=== PATIENT | female | born 2000 | race Caucasian/White ===

== ENCOUNTER 2024-11-15 09:43 | Emergency (ER) | payer OTHER, SELFPAY ==
[2024-11-15 09:54] VITALS: BP 115/74; PULSE 101; RESP 16; TEMP 36.9; O2SAT 98; BMI 34.2
--- NOTE | 2024-11-15 09:58 | EKG_ITS ---
[facility] Test Date: 2024-11-15 Pat Name: GREGORY FARLEY Department: Room: - Gender: Female Drill Setup Operator: : 2000 Requested By: Enio Luis Order Number: [id number] Reading MD: Enio Luis Measurements Intervals [place] Rate: 97 P: 68 NM: 141 QRS: 40 QRSD: 90 T: 20 QT: 322 QTc: 411 Interpretive Statements SINUS RHYTHM No previous ECG available for comparison /store/S0/[id number]/ecg/[id number].pdf
--- NOTE | 2024-11-15 10:02 | PD.EDRME ---
Rapid Medical Screening Exam [facility] Arrival date/time: 11/15/24 09:43 24-year-old female with no known medical history presents to the emergency room with a chief complaint of sternal chest pain that radiates down her left arm causing numbness x 3 days. Patient is currently 30 weeks . Patient denies any vaginal bleeding abdominal pain and states her baby is moving multiple times an hour. I have greeted and performed a focused initial assessment of this patient. A comprehensive ED assessment and evaluation of the patient, analysis of all test results, and completion of the medical decision making process will be conducted by additional ED providers. Chief Complaint: Chest Pain Vital signs: Vital Signs Temperature 98.5 F 11/15/24 09:54 Pulse Rate 101 H 11/15/24 09:54 Respiratory Rate 16 11/15/24 09:54 Blood Pressure 115/74 11/15/24 09:54 Pulse Oximetry (%) 98 11/15/24 09:54 Oxygen Delivery Method Room Air 11/15/24 09:54 Vital signs reviewed by provider: Yes
[2024-11-15 10:25] LABS: Basophils % (Auto) 0 % (0-2.5); Eosinophils # (Auto) 0.1 Thou/mm3 (0.0-0.5); Eosinophils % (Auto) 1 % (0-10); Hemoglobin 12.5 g/dL (12.0-16.0); Immature Granulocytes % (Auto) 2 % (0-0); Immature Granulocytes Auto 0.14 Thou/mm3 (0.00-0.00); Lymphocytes # (Auto) 2.2 Thou/mm3 (1.0-4.8); Lymphocytes % (Auto) 24 % (10-50); Mean Corpuscular HGB Conc 36.8 g/dl (31.0-37.0); Mean Corpuscular Hemoglobin 32.6 pg (25.0-35.0); Mean Corpuscular Volume 89 fL (80-100); Monocytes # (Auto) 0.8 Thou/mm3 (0.0-0.8); Monocytes % (Auto) 9 % (0-12); Neutrophils # (Auto) 5.8 Thou/mm3 (1.8-7.7); Neutrophils % (Auto) 64 % (37-80); Nucleated Red Blood Cell % 0 /100 WBC (0); Platelet Count 238 Thou/mm3 (140-440); RDW Standard Deviation 41.6 fL (36.4-46.3); Red Blood Count 3.84 Miln/mm3 (4.00-5.20)
[2024-11-15 10:42] LABS: B-Type Natriuretic Peptide < 20 pg/mL (0-100)
[2024-11-15 10:43] LABS: Alanine Aminotransferase 26 U/L (10-49); Albumin, Serum 4.1 gm/dL (3.5-5.0); Albumin/Globulin Ratio 1.6 (1.2-2.2); Alkaline Phosphatase 80 U/L (46-116); Anion Gap 9 (7-16); Aspartate Amino Transferase 19 U/L (0-34); BUN/Creatinine Ratio 8 Ratio (12-20); Bilirubin,Total 0.4 mg/dL (0.3-1.2); Blood Urea Nitrogen < 5 mg/dL (9-23); Calcium 9.8 mg/dL (8.3-10.6); Calcium (Corrected) 9.8 mg/dL (8.5-10.1); Carbon Dioxide 23.8 mMol/L (20.0-31.0); Chloride 103 mMol/L (98-107); Creatinine (Component) 0.6 mg/dL (0.6-1.3); Estimated Creatinine Clearance 128.2 mL/min (>60); Globulin 2.6 gm/dL (2.3-3.5); Glucose 80 mg/dL (74-106); Magnesium 1.8 mg/dL (1.6-2.6); Osmolality,Calculated 268 (275-295); Potassium 3.9 mMol/L (3.4-5.1); Sodium 136 mMol/L (136-145); Total Protein 6.7 gm/dL (5.7-8.2); Troponin I < 0.002 ng/mL (0.0-0.045); eGFR > 60 See Note
[2024-11-15 12:01] LABS: Collection Type, Urine Clean Catch
[2024-11-15 12:17] LABS: Bacteria,Urine Rare; Bilirubin,Urine Negative (Negative); Blood,Urine Negative (Negative); Clarity,Urine Clear (Clear/Hazy); Color,Urine Colorless (Lt Yel-Yel); Glucose, Urine Negative (Negative); Ketones,Urine Negative (Negative); Leukocyte Esterase,Urine Negative (Negative); Nitrite,Urine Negative (Negative); PH,Urine 7.5 (5.0-7.0); Protein,Urine Negative (Neg - Trace); RBC,Urine 1 /hpf (0-3); Specific Gravity,Urine 1.006 (1.001-1.035); Squamous Epithelial Cell,Urine 2 /hpf (0-5); Urobilinogen,Urine Negative mg/dL (0.0-1.0); WBC,Urine 1 /hpf (0-5)
--- NOTE | 2024-11-15 14:49 | PD.EDADULT ---
ED General RME/HPI General Chief complaint: Chest Pain Stated complaint: CHEST TIGHTNESS Time Seen by Provider: 11/15/24 14:05 Arrival date/time: 11/15/24 09:43 RME / HPI RME / HPI narrative: 11/15/24 09:43 24-year-old female with no known medical history presents to the emergency room with a chief complaint of sternal chest pain that radiates down her left arm causing numbness x 3 days. Patient is currently 30 weeks . Patient denies any vaginal bleeding abdominal pain and states her baby is moving multiple times an hour. I have greeted and performed a focused initial assessment of this patient. A comprehensive ED assessment and evaluation of the patient, analysis of all test results, and completion of the medical decision making process will be conducted by additional ED providers. DR. BAI MAIN ED EVALUATION: 24 year old female with no past medical history, who is 30 weeks , presents to the Emergency Department accompanied by her mother with complaint of chest tightness ongoing since Wednesday. Associated symptoms include left arm numbness. Today, she was at her OBGYN appointment and she told them about the chest pain and was sent over here for further evaluation. No shortness of breath. No other symptoms reported at this time. Review of Systems Review of Systems Systems Reviewed: All systems reviewed, normal except as documented Narrative Review of Systems: GEN: No fever, no chills, no weight loss EYES: No discharge, no visual changes, no pain HEENT: No ear pain, no congestion, no sore throat PULM: No shortness of breath, no cough, no congestion CV: + chest tightness, no dyspnea on exertion, no palpitations GI: No nausea, no vomiting, no diarrhea, no pain, no constipation : No frequency, no urgency and no dysuria MUSC/SKEL: No joint pain, no back pain SKIN: No rash PSYCH: No hallucinations, no depression HEME/LYMPH: No easy bleeding or bruising tendencies NEURO: + left arm numbness; no weakness, no headache Past Medical History Social History SMOKING STATUS: Never smoker SUBSTANCE USE: does not use ALCOHOL: Never Past Medical History Comments PMH COMMENT: Denies any PMHx, surgeries, daily medications, or known allergies. ED Exam Narrative Physical exam: GENERAL APPEARANCE: alert and oriented x 4, well-developed, well-nourished, no acute distress VITALS: All vitals were reviewed and the pulse ox is 98% on room air, which is normal according to my interpretation. HEENT: Normocephalic, atraumatic; pupils equal, round, reactive to light; EOMI; mucous membranes pink, moist; oropharynx clear NECK: Supple LUNGS: CTABL; no wheezes, no rales, no rhonchi HEART: borderline tachycardic at 101, regular rhythm; normal S1, S2; no murmurs ABDOMEN: non distended; normal BS; soft, no tenderness, no guarding, no rebound; no masses, no organomegaly, no hernia BACK: no CVA tenderness EXTREMITIES: atraumatic; no edema NEUROLOGIC: awake; alert and oriented x4; cranial nerves II-XII grossly intact; no focal sensory or motor deficits PSYCHIATRIC: appropriate mood and affect SKIN: warm, dry, normal color; no rashes Course Quality Measures none Orders Category Date Time Status EKG (ED ONLY) *Do not use* NOW Care 11/15/24 09:58 Completed EKG (ED Only) Stat Exams 11/15/24 09:58 Draft B-Type Natriuretic Peptide Stat Lab 11/15/24 10:16 Completed CBC Stat Lab 11/15/24 10:16 Completed Comprehensive Metabolic Panel Stat Lab 11/15/24 10:16 Completed Magnesium Stat Lab 11/15/24 10:16 Completed Troponin I Stat Lab 11/15/24 10:16 Completed Urinalysis Stat Lab 11/15/24 11:53 Completed Vital Signs Vital signs: Vital Signs Temperature 98.5 F 11/15/24 09:54 Pulse Rate 101 H 11/15/24 09:54 Respiratory Rate 16 11/15/24 09:54 Blood Pressure 115/74 11/15/24 09:54 Pulse Oximetry (%) 98 11/15/24 09:54 Oxygen Delivery Method Room Air 11/15/24 09:54 Discharge Plan Plan Patient Disposition: HOME (Self Care) Prescriptions/Referrals Referrals: Ramses Devries MD [Primary Care Provider] - In 1 week Problem List Clinical Impression: Chest tightness Patient/Caregiver Discharge Instructions Education Materials: ED Chest Pain, Noncardiac Print Language: Khmer Stand Alone Forms: Gwen Award Info., Patient Portal Info Letter MDM Narrative MDM hospital course: I, Michaelle Capone, am scribing for and in the presence of Dr. Bai. I discussed differentials with the patient. Recommended if the symptoms were persistent or worsened to come back for a VQ scan. Clinical Information Provided by patient and parent (mother) Medical Records Reviewed None (no previous visits) Meds/Rx Considered, not Ordered None Labs/Rad/Tests considered, not Ordered None Chronic Illness/Social Conditions Add or document further as needed: Denies any PMHx, surgeries, daily medications, or known allergies. 30 weeks . EKG Interpretation EKG #1: Date/time of EK11/15/24 1010 hours EKG interpretation: sinus rhythm, rate 97, Q wave in lead 3 Lab Interpretation Labs: interpreted by co Lab(s) interpretation(s): no acute findings, trop is negative Imaging Imaging interpretation: none Medication Administration(s) none Diagnosis Differential diagnosis: ND, dehydration, costochondritis Most likely dx, and/or detailed dx discussion: Chest tightness Dispositon Disposition: Discharge Home
== END 2024-11-15 16:08 | disposition home or self-care (01) ==
PROVIDERS: Nurse Practitioner Family; Emergency Provider Emergency Medicine; PCP Internal Medicine
DX: O26.893 Other specified pregnancy related conditions, third trimester (principal); Z3A.30 30 weeks gestation of pregnancy; R07.89 Other chest pain
CPT/HCPCS: 36415; 80053; 81001; 83735; 83880; 84484; 85025; 93005; 99283

== ENCOUNTER 2025-01-24 04:32 | Inpatient (IN) | payer OTHER, SELFPAY ==
[2025-01-24] VITALS (228 sets, daily range): BP systolic 111–175; BP diastolic 60–98; PULSE 55–116; RESP 16–98; TEMP 36.8–37.8; O2SAT 90–100; BMI 37.5; BMI 37.4
[2025-01-24 05:04] LABS: ROM Kit Exp Date# 11/15/25; ROM Kit Lot # 58102387; Swb Mxed in Solvent 1 min? Yes
[2025-01-24 05:05] LABS: ROM Swab Mixed By: TR; Rupture of Fetal Membranes Positive (Negative)
--- NOTE | 2025-01-24 05:38 | XR_ITS ---
Examination: Complete OB ultrasound greater than 14 weeks Date and time of exam: January 24, 2025 0631 hours INDICATIONS: Leaking amniotic fluid beginning 9:00 PM last night Findings: Viable intrauterine single fetus with single amniotic sac presentation cephalic Cardiac motion 155 BPM Placenta fundal grade 3 Umbilical cord insertion seen Amniotic fluid index 8.5 cm spine anterior Cervix 3.5 cm Ovaries obscured by bowel gas. Composite estimated gestational age based on BPD, head circumference, abdominal circumference, femur length is 34 weeks 0 days Estimated weight 2414 g. Survey of intracranial anatomy, spinal anatomy, abdominal anatomy, four-chamber heart performed with no abnormalities identified. Impression: Viable intrauterine gestation cephalic presentation.
--- NOTE | 2025-01-24 06:43 | PD.LDHP ---
Documentation for date of: 01/24/25 OB Labor/Induct. HPI History of Present Illness Chief complaint: Rupture of membranes : 1 Para: 0 Term pregnancies: 0 pregnancies: 0 Living children: 0 History of Abortions: Spontaneous and Elective: 0 History of Vaginal deliveries: 0 History of sections: No History of : No ROSA M: 01/22/25 History of present illness: 24-year-old G1, P0 presented to triage at about 3 AM with complaints of leakage of fluid from 2100 last night. Patient was noted to have positive AmniSure. Cervix was dilated to 1 cm with 50% effacement and -3 station. Patient [facility]. Verbally she states group B strep is negative but I do not have any access to medical records at this time. Patient denies any vaginal bleeding and reports adequate movements. Occasional contractions. History of Present Adequate Care: Yes Labs Labs: Positive: Rubella Titre, Negative: RPR, Hepatitis B, HIV, Chlamydia, Gonorrhea and Group Beta Strep and Unknown: Herpes Type 1, Herpes Type 2 and Covid-19 Review of Systems Review of Systems Systems Reviewed: All systems reviewed, normal except as documented Past Medical History Surgical History SURGICAL: Negative Section Meds Home Medications and Allergies Home Medications ?Medication ?Instructions ?Recorded ?Confirmed ?Type omeprazole 20 mg capsule,delayed 20 mg PO QDAY 01/24/25 01/24/25 History release vits no.130-ferrous fum 1 tab PO QDAY 01/24/25 01/24/25 History 27 mg iron-folic acid 800 mcg tablet ( Vitamin) Allergies Allergy/AdvReac Type Severity Reaction Status Date / Time No Known Allergies Allergy Verified 01/24/25 04:57 OB Exam Physical Exam Vital signs: Temp Pulse Resp BP Pulse Ox 98.3 F 77 17 132/81 H 100 01/24/25 04:37 01/24/25 05:24 01/24/25 04:37 01/24/25 05:24 01/24/25 05:17 Constitutional Constitutional: no acute distress Routine HEENT Exam Head: Present normocephalic and atraumatic Eye: Present EOMI and PERRL ENT: Present mucous membranes moist Routine Neck Exam Neck: Present supple and trachea midline Routine Cardiovascular Exam Cardiovascular: Present RRR Routine Abdominal Exam Abdominal: Present soft and normoactive bowel sounds Detailed Labor and Delivery Exam Dilation (cm): 1 Effacement (%): 50 Cervix position: posterior station: -3 Consistency: firm Presentation: Vertex Baseline heart rate: 140 monitor accelerations: 15x15 monitor decelerations: None Routine Extremities Exam Extremities: Present full ROM Routine Skin Exam Skin: Present intact, dry and warm Routine Neurological Exam Neurological: Present alert, oriented X3 and CN II-XII intact Routine Psychiatric Exam Psychiatric: Present normal affect and normal thought process OB Assessment & Plan Assessment and Plan (1) Spontaneous rupture of membranes: Status: Acute Assessment and plan: Admit to inpatient status Patient may require cervical ripening, offered misoprostol but she is declining interventions at this time. Complete OB ultrasound for EFW and presentation Reassess and monitor as needed (2) Primigravida: Status: Acute
[2025-01-24 06:54] LABS: Amphetamine/Metham Scrn,Ur OB Negative (Negative); Benzoylecgonine Screen, Ur OB Negative (Negative); Opiate Screen,Urine OB Negative (Negative); THC Screen,Urine OB Negative (Negative)
[2025-01-24 06:56] LABS: Basophils # (Auto) 0.0 Thou/mm3 (0.0-0.2); Basophils % (Auto) 0 % (0-2.5); Eosinophils # (Auto) 0.1 Thou/mm3 (0.0-0.5); Eosinophils % (Auto) 1 % (0-10); Hematocrit 35.0 % (36.0-46.0); Hemoglobin 12.4 g/dL (12.0-16.0); Immature Granulocytes Auto 0.08 Thou/mm3 (0.00-0.00); Lymphocytes # (Auto) 3.5 Thou/mm3 (1.0-4.8); Lymphocytes % (Auto) 31 % (10-50); Mean Corpuscular HGB Conc 35.4 g/dl (31.0-37.0); Mean Corpuscular Hemoglobin 32.3 pg (25.0-35.0); Mean Corpuscular Volume 91 fL (80-100); Monocytes # (Auto) 0.9 Thou/mm3 (0.0-0.8); Monocytes % (Auto) 8 % (0-12); Neutrophils # (Auto) 6.7 Thou/mm3 (1.8-7.7); Neutrophils % (Auto) 60 % (37-80); Nucleated Red Blood Cell # 0.00 Thou/mm3 (0.00-0.00); Nucleated Red Blood Cell % 0 /100 WBC (0); Platelet Count 233 Thou/mm3 (140-440); RDW Standard Deviation 41.6 fL (36.4-46.3); Red Blood Count 3.84 Miln/mm3 (4.00-5.20); White Blood Count 11.3 Thou/mm3 (3.6-11.0)
[2025-01-24 07:34] LABS: Syphilis Nonreactive (Nonreactive)
[2025-01-24] MEDS: ACETAMINOPHEN IVPB 1,000 MG/100 ML VIAL 250 MG IV (17:40)
--- NOTE | 2025-01-24 19:44 | PD.LDPN ---
Documentation for date of: 01/24/25 OB Labor Progress Note Pain Control Pain control: epidural Pelvic Exam Dilation (cm): 8 Effacement (%): 90 station: +1 Amniotic membrane status: Ruptured Comments: IUPC placed Contractions Monitor mode: External Contraction frequency: 2-4 Contraction intensity: Moderate Status status: Category l Assessment and Plan Assessment: induction ongoing Plan OB labor note: continuous present management and begin Pitocin augmentation
[2025-01-24] MEDS: ceFAZolin/D5W 2 GM IV 2 GM/100 ML BAG IV (20:14)
[2025-01-24] MEDS: OXYTOCIN in NS 30 units 30 UNIT/500 ML BAG IV (20:56)
[2025-01-24] MEDS: fentaNYL CIT INJ 50 mCg/ML AMP 2ML 100 MCG IVP (22:36)
[2025-01-24] MEDS: ONDANSETRON INJ 2 MG/ML INJ 2 ML 4 MG IVP (22:39)
[2025-01-25] VITALS (73 sets, daily range): BP systolic 113–143; BP diastolic 59–82; PULSE 56–110; RESP 16–18; TEMP 36.8–37.3; O2SAT 89–100
[2025-01-25] MEDS: MINERAL OIL 30 ML UDC TOP (01:31)
[2025-01-25] MEDS: OXYTOCIN in NS 20 units 20 UNIT/1,000 ML BAG 125 UNIT IV (01:48)
[2025-01-25] MEDS: TRANEXAMIC ACID 1,000 MG IVPB 1,000 MG/100 ML BAG 200 MG IV (02:22)
--- NOTE | 2025-01-25 02:55 | OBDSUM_ITS ---
Data ([facility]) Data Hx Section: No Maternal Blood Type: A Pos Rubella Titre: Positive RPR: Non-reactive Labs: Negative: RPR, Hepatitis B, HIV, Chlamydia, Gonorrhea and Group Beta Strep : 1 Term: 0 : 0 Livin Abortions: Spontaneous & Theraputic: 0 Delivery Data (Pastor) Labor Data Initiation of labor: Augmentation Induction/Augmentation Agent: Cytotec-PO and Pitocin ROM date: 01/23/25 ROM time: 21:30 Amniotic membrane rupture type: Spontaneous Amniotic fluid description: Light Meconium Delivery Data EDC: 01/22/25 Date of arrival to unit: 01/24/25 Onset of labor date: 01/24/25 Onset of labor time: 11:42 Complete dilation date: 01/24/25 Complete dilation time: 21:50 delivery date: 01/25/25 delivery time: 01:41 Placenta delivery date: 01/25/25 Placenta delivery time: 01:48 Stage 1 total time: Labor - Stage 1 Duration 10 hours and 8 minutes Delivered by: Dr. Michaud Delivery nurse: Jacinto Duncan RN/Susannah RN [place] nurse: Leslie Abreu RN Welding Manager at delivery: No Support person(s) at delivery: father of the baby Panchito Delivery Method Delivery method: Normal Vaginal Delivery Presentation: Vertex position: OA Anesthesia Type Anesthesia Type: Epidural Delivery Room Medications Delivery room medications: Pitocin 20 u IV Placenta Placenta delivery description: Spontaneous Cord blood sent to lab: Yes cord blood collection: Cord Blood Type Episiotomy Episiotomy description: None Lacerations #1: Perineal: 2nd degree Perineal repair Sutures used for repair: 4.0 Chromic and other (2-0 Chromic) EBL Estimated blood loss (ml): 200 Umbilical Cord cord description: 3 Vessels Additional Procedures Patient is a 24-year-old G1, P0 delivered at 40-4/7 weeks. All care w as with Dr Elizalde and on the chart. She presented with ROM and was 1 cm dilated on presentation on 01/24/2025. She was augmented with p.o. Cytotec and had epidural placed. She progressed to complete at 2150 on 01/24/2025. She then labored down for a while. She pushed about 1/2-hour ineffectively. She then labored down about an hour and a half. She then started pushing again around 1:00 in the morning pushed approximately 45 minutes delivering a liveborn female at 0041 on 01/25/2025 of note I was at bedside pushing for last 40 minutes pushing with the patient. Findings liveborn female in the SVETLANA presentation with no nuchal cord or meconium. Apgars were 7,8,and 9 weight was 7 pounds 1 ounce. The placenta was complete spontaneous grossly normal delivering about 7 minutes after baby delivered. Patient sustained a second-degree perineal laceration repaired in standard fashion using 2-0 chromic and 4-0 chromic. EBL was 100 cc. Complications were none ,condition both mom and infant were in stable condition in the day room.. Complications Complications: None [place] Data (Pastor) Data 's gender: Female Identification band number: [id number] weight (gms): 3195 g Weight (pounds): 7 lbs and 0.7 ozs 1 minute: 7 5 minutes: 8 10 minutes: 9
[2025-01-25] MEDS: BENZO/LANO/ALOE (Dermoplast) 60 GM CAN 1 SPRAY TOP (04:05)
[2025-01-25] MEDS: ceFAZolin/D5W 2 GM IV 2 GM/100 ML BAG IV (04:24)
--- NOTE | 2025-01-25 07:16 | PC.NURSE ---
01/24/25-01/25/25 RN precepting Tang Menard RN, reviewed and agree with labor progress charting.
[2025-01-25] MEDS: DOCUSATE SOD 100 MG CAPSULE PO ×2 (08:37→21:53)
--- NOTE | 2025-01-25 08:41 | PD.LDDELS ---
Data (Pastor) Data Hx Section: No : 1 Term: 0 : 0 Livin Abortions: Spontaneous & Theraputic: 0 Delivery Data (Pastor) Labor Data Initiation of labor: Spontaneous Induction/Augmentation Agent: Cytotec-PO and Pitocin ROM date: 01/23/25 ROM time: 21:30 Amniotic membrane rupture type: Spontaneous Amniotic fluid description: Light Meconium Delivery Data EDC: 01/26/25 EDC calculated by:: LMP/early US confirmation Date of arrival to unit: 01/24/25 Time of arrival to unit: 08:42 Onset of labor date: 01/24/25 Onset of labor time: 11:42 Complete dilation date: 01/24/25 Complete dilation time: 21:50 delivery date: 01/25/25 [place] delivery time: 01:41 Gestational age (weeks): 39 Gestational age (days): 5 Placenta delivery date: 01/25/25 Placenta delivery time: 01:48 Stage 1 total time: Labor - Stage 1 Duration 10 hours and 8 minutes Delivered by: Dr. Michaud Delivery nurse: Jacinto Duncan RN/Susannah BOURNE [place] nurse: Leslie Abreu RN Radio Program Director at delivery: No Support person(s) at delivery: father of the baby Panchito Delivery Method Delivery method: Normal Vaginal Delivery Presentation: Vertex position: OA Anesthesia Type Anesthesia Type: Epidural Delivery Room Medications Delivery room medications: Pitocin 10 u IM, Pitocin 20 u IV, Cytotec [address] and other (TXA) Placenta Placenta delivery description: Spontaneous (inspected intact) Cord blood sent to lab: Yes cord blood collection: Cord Blood Type Episiotomy Episiotomy description: None (intact) EBL Estimated blood loss (ml): 400 Umbilical Cord cord description: 3 Vessels and Nuchal Cord Data (Pastor) Data [place] gender: Female Identification band number: [id number] weight (gms): 3195 g Weight (pounds): 7 lbs and 0.7 ozs 1 minute: 7 5 minutes: 8 10 minutes: 9
[2025-01-25 10:02] LABS: Basophils # (Auto) 0.0 Thou/mm3 (0.0-0.2); Basophils % (Auto) 0 % (0-2.5); Eosinophils # (Auto) 0.0 Thou/mm3 (0.0-0.5); Eosinophils % (Auto) 0 % (0-10); Hematocrit 30.9 % (36.0-46.0); Hemoglobin 11.1 g/dL (12.0-16.0); Immature Granulocytes Auto 0.11 Thou/mm3 (0.00-0.00); Lymphocytes # (Auto) 2.1 Thou/mm3 (1.0-4.8); Lymphocytes % (Auto) 12 % (10-50); Mean Corpuscular HGB Conc 35.9 g/dl (31.0-37.0); Mean Corpuscular Hemoglobin 33.0 pg (25.0-35.0); Mean Corpuscular Volume 92 fL (80-100); Monocytes # (Auto) 1.3 Thou/mm3 (0.0-0.8); Monocytes % (Auto) 7 % (0-12); Neutrophils # (Auto) 14.6 Thou/mm3 (1.8-7.7); Neutrophils % (Auto) 80 % (37-80); Nucleated Red Blood Cell # 0.00 Thou/mm3 (0.00-0.00); Nucleated Red Blood Cell % 0 /100 WBC (0); Platelet Count 251 Thou/mm3 (140-440); RDW Standard Deviation 42.0 fL (36.4-46.3); Red Blood Count 3.36 Miln/mm3 (4.00-5.20); White Blood Count 18.3 Thou/mm3 (3.6-11.0)
[2025-01-26 04:20] VITALS: BP 136/87; PULSE 86; RESP 20; TEMP 37; O2SAT 97
[2025-01-26 07:12] LABS: Basophils # (Auto) 0.1 Thou/mm3 (0.0-0.2); Basophils % (Auto) 0 % (0-2.5); Eosinophils # (Auto) 0.3 Thou/mm3 (0.0-0.5); Eosinophils % (Auto) 2 % (0-10); Hematocrit 28.7 % (36.0-46.0); Hemoglobin 10.2 g/dL (12.0-16.0); Immature Granulocytes Auto 0.09 Thou/mm3 (0.00-0.00); Lymphocytes # (Auto) 3.1 Thou/mm3 (1.0-4.8); Lymphocytes % (Auto) 23 % (10-50); Mean Corpuscular HGB Conc 35.5 g/dl (31.0-37.0); Mean Corpuscular Hemoglobin 32.8 pg (25.0-35.0); Mean Corpuscular Volume 92 fL (80-100); Monocytes # (Auto) 0.9 Thou/mm3 (0.0-0.8); Monocytes % (Auto) 7 % (0-12); Neutrophils # (Auto) 9.0 Thou/mm3 (1.8-7.7); Neutrophils % (Auto) 67 % (37-80); Nucleated Red Blood Cell # 0.00 Thou/mm3 (0.00-0.00); Nucleated Red Blood Cell % 0 /100 WBC (0); Platelet Count 191 Thou/mm3 (140-440); RDW Standard Deviation 42.8 fL (36.4-46.3); Red Blood Count 3.11 Miln/mm3 (4.00-5.20); White Blood Count 13.4 Thou/mm3 (3.6-11.0)
--- NOTE | 2025-01-26 08:03 | PD.LDPPPRG ---
Subjective Subjective Interval history: The patient is a 24-year-old -0-0-1 status post vaginal delivery by Dr Michaud around 1:30 in the morning 01/25/2025. She is day #1 today. She is resting comfortably eating her breakfast. Her is at bedside with the baby. She is breast-feeding. She denies heavy bleeding, her pain is controlled. She is tolerating a general diet, voiding and ambulating. She had a second-degree perineal laceration. She saw Dr Elizalde for care. Exam Vital Signs Temp Pulse Resp BP Pulse Ox O2 Del Method 98.6 F 86 20 136/87 H 97 Room Air 01/26/25 04:20 01/26/25 04:20 01/26/25 04:20 01/26/25 04:20 01/26/25 04:20 01/26/25 04:20 Narrative Exam Patient is alert and oriented x 3 no apparent distress. Fundus is firm at umbilicus extremities show 2+ pitting edema no erythema. Objective Labs 01/26/25 06:39 Labs: Laboratory Results - last 24 hr 01/25/25 01/26/25 09:30 06:39 WBC 18.3 H 13.4 H RBC 3.36 L 3.11 L Hgb 11.1 L 10.2 L Hct 30.9 L 28.7 L MCV 92 92 MCH 33.0 32.8 MCHC 35.9 35.5 RDW Std Deviation 42.0 42.8 Plt Count 251 191 D Neut % (Auto) 80 67 Lymph % (Auto) 12 23 Braxton % (Auto) 7 7 Eos % (Auto) 0 2 Baso % (Auto) 0 0 Neut # (Auto) 14.6 H 9.0 H Lymph # (Auto) 2.1 3.1 Braxton # (Auto) 1.3 H 0.9 H Eos # (Auto) 0.0 0.3 Baso # (Auto) 0.0 0.1 Immature Gran # (Auto) 0.11 H 0.09 H Absolute Nucleated RBC 0.00 0.00 Immature Gran % 1 H 1 H Nucleated RBC % 0 0 Assessment & Plan Problem List (1) care following vaginal delivery: Problem details: Patient is doing well. She will be discharged home day #1. Discharge instructions given. Status: Acute Time Spent With Patient Time: Total time spent is greater than 50% in coordination of care (as documented) at patient's floor/unit and/or counseling patient: Time with patient: less than 15 minutes
--- NOTE | 2025-01-26 08:05 | PD.LDDS ---
DS: Providers Provider Date of admission: 01/24/25 05:36 Primary care physician: Physician No Primary/Family Admitting Provider: Bob Roblero MD Attending Provider on Admission: Geovanna Herrera CNM Consults: 01/25/25 02:19 Referral Routine Comment: Attending Provider on DC: Erin [facility]aud [facility] ([facility]) Discharging Provider: Erin [facility]aud MD ([facility]) Anticipated date of discharge: 01/26/25 DS: Diagnosis Discharge Diagnosis (1) care following vaginal delivery: Status: Acute Assessment & Plan: Patient is doing well. Discharge home day #1 in stable condition. Problem List Completed Was Problem List Reviewed/Reconciled?: Yes Summary/Hosp Course Brief History: 24-year-old G1, P0 presented to triage at about 3 AM with complaints of leakage of fluid from 2100 last night. Patient was noted to have positive AmniSure. Cervix was dilated to 1 cm with 50% effacement and -3 station. Patient [facility]. Verbally she states group B strep is negative but I do not have any access to medical records at this time. Patient denies any vaginal bleeding and reports adequate movements. Occasional contractions. Please see history and physical for further details. Hospital course: Patient was admitted she was induced with Cytotec. She went on to have epidural placed. She pushed approximately an hour and a half total delivering approximately 140 in the morning on 01/25/[address] Rosa Michaud. She had a second second-degree perineal laceration. See delivery notes for further details. Her course was uncomplicated. She was discharged home day #1 in stable condition. Discharge medications included ibuprofen and Tylenol. On the day of discharge her hemoglobin was stable 11.1. Vital signs were stable. She denied any heavy bleeding. She is breast-feeding. Peripartum Data Delivery Method: Normal Vaginal Delivery Episiotomy Description: None Laceration Description: see Delivery Summary complications: none Status at Discharge Cognitive/behavioral status at discharge: Patient is alert and oriented x 3 in no apparent distress Functional status at discharge: independent ambulation Overall status at discharge: patient is progressing back to baseline Time Spent with Patient Time attestation: Total time spent providing and/or coordinating discharge services: Time spent: Less than 30 minutes Specific discharge activities: Pelvic rest x 6 weeks Exam Vital Signs Temp Pulse Resp BP Pulse Ox O2 Del Method 98.6 F 86 20 136/87 H 97 Room Air 01/26/25 04:20 01/26/25 04:20 01/26/25 04:20 01/26/25 04:20 01/26/25 04:20 01/26/25 04:20 Narrative Exam Fundus firm nontender extremities show no significant edema or erythema Discharge Plan Plan Patient Disposition: HOME (Self Care) Disposition Comment: Stable Patient condition on transfer: Stable Prescriptions/Referrals Prescriptions/Med Rec: New ibuprofen 400 mg Tablet 800 mg PO Q8H PRN (Reason: See Comments) Qty: 60 0RF No Action omeprazole 20 mg capsule,delayed release(DR/EC) 20 mg PO QDAY Patient Comments: TAKE 1 CAPSULE BY MOUTH EVERY DAY Vitamin 27 mg iron- 800 mcg tablet 1 tab PO QDAY Patient Comments: TAKE 1 TABLET BY MOUTH EVERY DAY Referrals: No Primary/Family,Physician [Primary Care Provider] - Patient/Caregiver Discharge Instructions Discharge Activity: activity as tolerated Other Discharge Activity Instructions:: Pelvic rest x 6 weeks Other Discharge Diet Instructions: General Diet as tolerated Education Materials: After a Vaginal , Breastfeed Holds, Breast Care After , Feel Healthy After Print Language: Kittitian Activity Restrictions/Additional Instructions: No tampons intercourse douching swimming pools x [address] Elizalde for a follow-up appointment Stand Alone Forms: Gwen Award Info., Patient Portal Info Letter Discharge Order Discharge Orders: Discharge (Routine); Ordered 01/26/25 Ordered By: Erin Michaud ([facility]) Planned Discharge Date 01/26/25
[2025-01-26 08:40] VITALS: BP 123/80; PULSE 92; RESP 18; TEMP 36.7; O2SAT 97
[2025-01-26] MEDS: DOCUSATE SOD 100 MG CAPSULE PO (08:57)
--- NOTE | 2025-01-29 07:27 | ESPR_ITS ---
RE: GREGORY FARLEY : 2000 DATE OF SERVICE: 01/25/2025 SUBJECTIVE: day #0, the patient denies any problem or complaint. She denies any excessive vaginal bleeding. She denies any dizziness or lightheadedness. OBJECTIVE: Vital Signs: Blood pressure 121/62, heart rate 74, respirations 18, temperature 98.6, pulse oximetry is 99% on room air. Lungs: Clear to auscultation bilaterally. Heart: Regular rate and rhythm. Abdomen: Fundus is firm. Extremities: Nontender. ASSESSMENT: day #0, status post spontaneous vaginal delivery. PLAN: care, surgical consultant, possible discharge home tomorrow. DT: 06:39:26 TT: 07:48:00 Ref: [id number] - TID: [id number]
== END 2025-01-26 14:20 | disposition home or self-care (01) | DRG 807 ==
LOC: S4SX 01-25 03:28 → S4NX 01-25 04:27
PROVIDERS: Obstetrics & Gynecology; Admitting Provider Obstetrics & Gynecology; Visit Provider Advanced Practice Midwife
DX: O48.0 Post-term pregnancy (principal); Z37.0 Single live birth; O42.92 Full-term premature rupture of membranes, unspecified as to length of time between rupture and onset of labor; O70.1 Second degree perineal laceration during delivery; O77.0 Labor and delivery complicated by meconium in amniotic fluid; Z3A.40 40 weeks gestation of pregnancy
CPT/HCPCS: 36415; 59025; 59409; 76805; 80307; 84112; 85025; 86780; 86850; 86900; 86901; 94762; J0131; J0689; J2405; J2590; J2795; J3010; J3490; A9270